=== PATIENT | female | born 1970 | race Two or more races ===

== ENCOUNTER 2019-08-31 16:58 | Day surgery (SDC) | payer BC, OTHER ==
[~2019-08-31] VITALS: Ht 162.6 cm; Wt 75.1 kg
[2019-08-31 18:02] LABS: MICROSCOPIC INDICATED
[2019-08-31 18:21] LABS: CULTURE INDICATED? YES
--- NOTE | 2019-08-31 18:28 | NUR ---
SHEET TURNER: PT AMBULATORY WITH STEADY GAIT TO ROOM AT THIS TIME.
--- NOTE | 2019-08-31 18:44 | NUR ---
FIRST CONTACT WITH PT. PT HERE FOR BILATERAL FLANK PAIN THAT RADIATES DOWN HER THIGHS. PT REPORTS SHE ALSO FEELS LIKE HER STOMACH IS SWOLLEN. PT REPORTS 800MG IBUPROFIN Q2H AND NO PAIN RELIEF. PT RPEORTS PAIN 10/10. HX OF KIDNEY STONES. PT'S AOX4. RESPS EVEN AND UNLABORED. BP/SPO2 MONITORS IN PLACE. CALL LIGHT WITHIN REACH. EDMD AT BEDSIDE TO EVALUATE AT THIS TIME. COMORAN SPEAKING.
--- NOTE | 2019-08-31 18:51 | NUR ---
PT STATES "I GAVE URINE SAMPLE ALREADY." LAB AT BEDSIDE AT THIS TIME.
[2019-08-31] MEDS ORDERED: ONDANSETRON 2MG/ML, 2ML ONE (18:58)
[2019-08-31] MEDS ORDERED: MORPHINE SULFATE 4 MG/ML, 1ML ONE ×2 (18:59→21:17)
[2019-08-31] MEDS ORDERED: ONDANSETRON 2MG/ML, 2ML IVPush ONE (19:00)
--- NOTE | 2019-08-31 19:03 | NUR ---
REPORT GIVEN TO NEVILLE KIM.
[2019-08-31 19:06] LABS: MEAN CORPUSCULAR HEMOGLOBIN 28.1 pg (27.0-34.8); MEAN CORPUSCULAR HGB CONC 33.1 g/dL (32.4-35.8); MEAN CORPUSCULAR VOLUME 84.8 fL (80-100); PLATELET COUNT 274 x10^3/uL (130-400); RED BLOOD COUNT 4.78 x10^6/uL (3.82-5.3)
[2019-08-31] MEDS: MORPHINE SULFATE 4 MG/ML, 1ML IVPush PRN ×2 (19:08→21:34)
--- NOTE | 2019-08-31 19:13 | NUR ---
Report received from JUDY Herrera. This RN to assume care. Patient c/o abd pain. IV initiated; medicated patient per jun.
[2019-08-31 19:14] LABS: ALANINE AMINOTRANSFERASE 29 U/L (12-78); ALBUMIN 3.5 g/dL (3.4-5.0); ANION GAP 6 mmol/L (5-15); CALCIUM 8.9 mg/dL (8.5-10.1); CHLORIDE 106 mmol/L (98-107); CREATININE 0.69 mg/dL (0.55-1.02)
[2019-08-31 19:18] LABS: ALKALINE PHOSPHATASE 127 U/L (45-117); BILIRUBIN,TOTAL 0.2 mg/dL (0.2-1.0); TOTAL PROTEIN 7.6 g/dL (6.4-8.2)
[2019-08-31 19:25] LABS: BASOPHILS # (AUTO) 0.03 x10^3/uL (0-0.1); BASOPHILS % (AUTO) 0 % (0-1); EOSINOPHILS # (AUTO) 0.53 x10^3/uL (0-0.4); EOSINOPHILS % (AUTO) 7 % (1-7); LYMPHOCYTES % (AUTO) 31 % (22-44); MD MORPH REVIEW ONLY; MONOCYTES # (AUTO) 0.67 x10^3/uL (0.2-0.8); MONOCYTES % (AUTO) 9 % (2-9); NEUTROPHILS # (AUTO) 4.21 x10^3/uL (1.8-6.8); NEUTROPHILS % (AUTO) 54 % (42-75)
[2019-08-31 19:29] LABS: ANISOCYTOSIS 1+; OVALOCYTES 1+
[2019-08-31 19:36] LABS: <PLATELET ESTIMATE> ADEQUATE; <PLT MORPHOLOGY> NORMAL PLT MORPH
[2019-08-31 19:37] LABS: POLYCHROMASIA 1+
[2019-08-31] MEDS ORDERED: OMNIPAQUE 350 MG/ML, 100ML BOTTLE ONE (19:41)
--- NOTE | 2019-08-31 19:48 | NUR ---
Patient states she only has a little pain but is dizzy from the Morphine. Advised patient she will be slightly dizzy but we will monitor her and to let us know if anything changes.
--- NOTE | 2019-08-31 20:39 | NUR ---
commode brought to room
--- NOTE | 2019-08-31 21:19 | NUR ---
TP RN: MEDS PULLED PER JUN FOR JUDY FERNANDEZ, REBECCA IS LOCKED OUT OF [facility] WITH INVALID PASSWORD. HOUSE SUP, STEFAN AWARE.
[2019-08-31] MEDS ORDERED: SODIUM CHLORIDE 0.9% 1,000 ML IV ONE (21:22)
[2019-08-31] MEDS ORDERED: HYDROmorphone 1 MG/ML, 1ML INJ IVPush PRN (21:30)
[2019-08-31] MEDS ORDERED: CEFTRIAXONE PMX 1GM/50ML 50 ML IV ONE (21:30)
[2019-08-31] MEDS ORDERED: ONDANSETRON 2MG/ML, 2ML IVPush PRN (21:30)
[2019-08-31] MEDS ORDERED: CEFTRIAXONE PMX 1GM/50ML 50 ML ONE (21:36)
[2019-08-31 22:56] VITALS: BP 119/81
[2019-08-31] MEDS: HYDROmorphone 1 MG/ML, 1ML INJ IV PRN ×2 (23:21→23:52)
[2019-08-31] MEDS ORDERED: ASCO500C2 PO (23:24)
[2019-08-31] MEDS ORDERED: CHOL500L3 PO (23:24)
[2019-08-31] MEDS ORDERED: PREN-1 PO (23:24)
[2019-08-31] MEDS ORDERED: ASCO1CAP2 PO (23:24)
[2019-08-31] MEDS ORDERED: RANI-460 PO (23:26)
[2019-09-01] MEDS ORDERED: HYDROmorphone 1 MG/ML, 1ML INJ IM PRN
[2019-09-01] MEDS: ONDANSETRON 2MG/ML, 2ML IVPush PRN ×2 (01:20→10:02)
[2019-09-01 01:46] VITALS: BP 107/68
[2019-09-01] MEDS ORDERED: CHLORHEXIDINE 15 ML UDC ONE (02:45)
[2019-09-01] MEDS ORDERED: BUPIVACAINE/PF-EPI 0.5% 1:200K ONE (02:46)
[2019-09-01] MEDS: HYDROmorphone 1 MG/ML, 1ML INJ IV PRN (05:00)
[2019-09-01] MEDS ORDERED: PROMETHAZINE 25 MG/ML, 1ML IVPush PRN (06:00)
[2019-09-01] MEDS ORDERED: HALOPERIDOL 5 MG/ML IV PRN (06:00)
[2019-09-01] MEDS ORDERED: HYDROmorphone 1 MG/ML, 1ML INJ IVPush PRN (06:00)
[2019-09-01] MEDS ORDERED: morphine SULFATE 10 MG/ML, 1ML IVPush PRN (06:00)
[2019-09-01] MEDS ORDERED: MEPERIDINE/PF 25MG/0.5ML IVPush PRN (06:00)
[2019-09-01] MEDS ORDERED: LABETALOL 5MG/ML, 20ML IV PRN (06:00)
[2019-09-01] MEDS ORDERED: OXYcodone 5 MG/5 ML ORAL.SOL UDC PO PRN (06:00)
[2019-09-01] MEDS ORDERED: hydrALAzine 20 MG/ML, 1ML IV PRN (06:00)
[2019-09-01] MEDS ORDERED: FENTANYL PF 100 MCG/2ML IV PRN (06:00)
[2019-09-01] MEDS ORDERED: ACETAMINOPHEN 325 MG TABLET PO PRN (06:00)
[2019-09-01] MEDS ORDERED: KETOROLAC 30 MG/1 ML ONE (06:04)
[2019-09-01] MEDS ORDERED: NEOSTIGMINE 1 MG/ML, 10ML ONE (06:04)
[2019-09-01] MEDS ORDERED: GLYCOPYRROLATE 0.2MG/1ML, 5ML ONE (06:04)
[2019-09-01] MEDS ORDERED: CEFOTETAN PMX 2GM/50ML 50 ML IVPB ONE (06:04)
[2019-09-01] MEDS ORDERED: ROCURONIUM 10 MG/ML,10ML ONE (06:04)
[2019-09-01] MEDS ORDERED: SUCCINYLCHOLINE 20 MG/ML, 10ML ONE (06:04)
[2019-09-01] MEDS ORDERED: DEXAMETHASONE 4 MG/ML, 1ML ONE (06:04)
[2019-09-01] MEDS ORDERED: ONDANSETRON 2MG/ML, 2ML ONE (06:04)
[2019-09-01] MEDS ORDERED: PROPOFOL 10 MG/ML, 20ML ONE (06:04)
[2019-09-01] MEDS ORDERED: BUPIVACAINE/PF-EPI 0.5% 1:200K INFIL ONE (06:36)
[2019-09-01 07:55] VITALS: BP 99/66
[2019-09-01] MEDS ORDERED: KETOROLAC 30 MG/1 ML IV PRN (08:30)
[2019-09-01] MEDS ORDERED: HYDROcodone/APAP 5/325 TABLET PO PRN (08:30)
[2019-09-01] MEDS ORDERED: MORPHINE SULFATE 4 MG/ML, 1ML IVPush PRN (09:00)
[2019-09-01] MEDS ORDERED: HYDR-3240 PO (09:56)
== END 2019-09-01 12:28 | disposition home or self-care (01) ==
LOC: OR 21:32 → UNDOADMIN 21:38 → OR 21:38 → EDIP 21:38 → 4NE 22:53 → EDIP 22:53 → EDSTATUS 09-01 06:30 → OR 09-01 12:28 → UNDODISIN 09-01 12:28
PROVIDERS: ATTEND Student in an Organized Health Care Education/Training Program
DX: K35.80 Unspecified acute appendicitis (principal); K21.9 Gastro-esophageal reflux disease without esophagitis; Z79.899 Other long term (current) drug therapy; Z90.49 Acquired absence of other specified parts of digestive tract
CPT/HCPCS: 36415; 44970; 74177; 80053; 81001; 83605; 83690; 84703; 85025; 87086; 88304; 99285; C1729; J0330; J0696; J1100; J1170; J1885; J2270; J2405; J2704; J2710; J3490; J7030; Q9967; G0378

== ENCOUNTER 2019-09-03 17:53 | Emergency (ER) | payer OTHER ==
[~2019-09-03] VITALS: Ht 160 cm; Wt 74.9 kg
[~2019-09-03 17:53] MED LIST: ASCO1CAP2 PO; ASCO500C2 PO; CHOL500L3 PO; HYDR-3240 PO; PREN-1 PO; RANI-460 PO
--- NOTE | 2019-09-03 18:23 | NUR ---
ua collected from patient in lobby-sent for analysis
[2019-09-03 18:46] LABS: MICROSCOPIC NOT IND
[2019-09-03 18:59] LABS: CULTURE INDICATED? NO
[2019-09-03] MEDS ORDERED: ONDANSETRON 2MG/ML, 2ML IVPush ONE ×2 (19:30→21:00)
[2019-09-03] MEDS ORDERED: SODIUM CHLORIDE 0.9% 1,000ML IVBOLUS ONE (19:30)
[2019-09-03] MEDS ORDERED: SODIUM CHLORIDE FLUSH 10ML SYR IVF ONE (19:30)
[2019-09-03] MEDS ORDERED: ONDANSETRON 2MG/ML, 2ML ONE (19:31)
--- NOTE | 2019-09-03 19:39 | NUR ---
PIV PLACED. MEDS ADMIN PER JUN. IVF RUNNING. PT RESTING COMFORTABLY ON [facility]. FABIOLA.
--- NOTE | 2019-09-03 20:10 | NUR ---
IVF COMPLETE. CHART UP FOR RECHECK.
[2019-09-03] MEDS ORDERED: MORPHINE SULFATE 4 MG/ML, 1ML IVPush PRN (21:00)
[2019-09-03] MEDS ORDERED: MORPHINE SULFATE 4 MG/ML, 1ML ONE (21:11)
--- NOTE | 2019-09-03 21:15 | NUR ---
PAIN MEDS ADMIN PER JUN.
[2019-09-03 21:17] VITALS: BP 113/70
== END 2019-09-03 21:57 | disposition home or self-care (01) ==
LOC: ED 21:02
DX: R10.84 Generalized abdominal pain (principal); R51 Headache; M54.5 Low back pain; R11.0 Nausea; Z90.49 Acquired absence of other specified parts of digestive tract; Z90.710 Acquired absence of both cervix and uterus
CPT/HCPCS: 81003; 96374; 96375; 99284; J2270; J2405; J7030

== ENCOUNTER → 2019-12-29 | Outpatient (CLI) | payer OTHER ==
[~2019-12-29] MED LIST changes: +None at this Time
[2019-12-29 11:26] LABS: BASOPHILS # (AUTO) 0.04 x10^3/uL (0-0.1); BASOPHILS % (AUTO) 1 % (0-1); EOSINOPHILS # (AUTO) 0.41 x10^3/uL (0-0.4); EOSINOPHILS % (AUTO) 6 % (1-7); LYMPHOCYTES # (AUTO) 1.96 x10^3/uL (1-3.4); LYMPHOCYTES % (AUTO) 30 % (22-44); MD NO; MEAN CORPUSCULAR HEMOGLOBIN 29.7 pg (27.0-34.8); MEAN CORPUSCULAR HGB CONC 33.4 g/dL (32.4-35.8); MEAN CORPUSCULAR VOLUME 88.9 fL (80-100); MEAN PLATELET VOLUME 8.8 fL (7.4-10.4); MONOCYTES # (AUTO) 0.56 x10^3/uL (0.2-0.8); MONOCYTES % (AUTO) 9 % (2-9); NEUTROPHILS # (AUTO) 3.62 x10^3/uL (1.8-6.8); NEUTROPHILS % (AUTO) 55 % (42-75); PLATELET COUNT 270 x10^3/uL (130-400); RED BLOOD COUNT 4.64 x10^6/uL (3.82-5.3); RED CELL DISTRIBUTION WIDTH 12.4 % (9.6-15.2)
[2019-12-29 12:01] LABS: MICROSCOPIC AUTO
== END | disposition home or self-care (01) ==
LOC: STAR 10:15
PROVIDERS: ATTEND Obstetrics & Gynecology
DX: Z01.818 Encounter for other preprocedural examination (principal); D25.9 Leiomyoma of uterus, unspecified; N93.9 Abnormal uterine and vaginal bleeding, unspecified
CPT/HCPCS: 36415; 81001; 85025; 93005

== ENCOUNTER → 2020-01-01 | Outpatient (CLI) | payer OTHER ==
[~2020-01-01] MED LIST changes: +IBUP-1222 PO; +OXYC-302 PO
== END | disposition home or self-care (01) ==
LOC: STAR 14:27
PROVIDERS: ATTEND Anesthesiology
DX: Z01.812 Encounter for preprocedural laboratory examination (principal); Z20.828 Contact with and (suspected) exposure to other viral communicable diseases
CPT/HCPCS: 36415; 87635

== ENCOUNTER 2020-01-05 10:30 | Observation (INO) | payer OTHER ==
[~2020-01-05] VITALS: Ht 167.6 cm; Wt 77.1 kg
[~2020-01-05 10:30] MED LIST changes: -IBUP-1222 PO; -OXYC-302 PO
[2020-01-05] MEDS ORDERED: CHLORHEXIDINE 15 ML UDC MM STA (10:57)
[2020-01-05] MEDS ORDERED: LACTATED RINGERS 1,000 ML IV SCH (10:57)
[2020-01-05] MEDS ORDERED: CHLORHEXIDINE 15 ML UDC ONE (11:03)
[2020-01-05] MEDS ORDERED: DEXAMETHASONE 4 MG/ML, 1ML ONE (12:11)
[2020-01-05] MEDS ORDERED: ROCURONIUM 10MG/ML,5ML ONE (12:11)
[2020-01-05] MEDS ORDERED: GLYCOPYRROLATE 0.2MG/1ML, 5ML ONE (12:11)
[2020-01-05] MEDS ORDERED: MIDAZOLAM 1 MG/ML, 2ML ONE (12:11)
[2020-01-05] MEDS ORDERED: FENTANYL PF 100 MCG/2ML ONE ×2 (12:11→15:03)
[2020-01-05] MEDS ORDERED: PROPOFOL 10 MG/ML, 20ML ONE (12:11)
[2020-01-05] MEDS ORDERED: NEOSTIGMINE 1 MG/ML, 10ML ONE (12:11)
[2020-01-05] MEDS ORDERED: ONDANSETRON 2MG/ML, 2ML ONE (12:11)
[2020-01-05] MEDS ORDERED: SUCCINYLCHOLINE 20 MG/ML, 10ML ONE (12:11)
[2020-01-05] MEDS ORDERED: CEFAZOLIN 1,000 MG ONE (12:11)
[2020-01-05] MEDS ORDERED: OXYcodone 5 MG/5 ML ORAL.SOL UDC PO PRN (12:30)
[2020-01-05] MEDS ORDERED: HYDROmorphone 1 MG/ML, 1ML INJ IVPush PRN (12:30)
[2020-01-05] MEDS ORDERED: BUPIVACAINE/PF 0.25% ONE (12:30)
[2020-01-05] MEDS ORDERED: MEPERIDINE/PF 25MG/0.5ML IVPush PRN (12:30)
[2020-01-05] MEDS ORDERED: FLUORESCEIN SODIUM 500 MG/5 ML ONE (12:30)
[2020-01-05] MEDS ORDERED: EPINEPHRINE 1 MG/ML, 1ML ONE (12:30)
[2020-01-05] MEDS ORDERED: PROMETHAZINE 25 MG/ML, 1ML IVPush PRN (12:30)
[2020-01-05] MEDS ORDERED: HYDROcodone/APAP 7.5-325MG/15ML UDC PO PRN (12:30)
[2020-01-05] MEDS ORDERED: VASOPRESSIN 20 UNIT/ML, 1ML ONE (12:40)
[2020-01-05] MEDS ORDERED: SUGAMMADEX 200 MG/2 ML IVPush ONE (12:47)
[2020-01-05] MEDS: FENTANYL PF 100 MCG/2ML IV PRN ×2 (15:08→15:30)
[2020-01-05] MEDS ORDERED: OXYcodone 5 MG/5 ML ORAL.SOL UDC ONE ×2 (15:30→15:36)
[2020-01-05] MEDS ORDERED: KETOROLAC 30 MG/1 ML IVPush PRN ×2 (15:30→19:00)
[2020-01-05] MEDS ORDERED: ONDANSETRON 2MG/ML, 2ML IVPush PRN (15:30)
[2020-01-05] MEDS ORDERED: ACETAMINOPHEN 650 MG/20.3 ML UDC ONE (15:30)
[2020-01-05] MEDS: ACETAMINOPHEN 325 MG TABLET PO PRN ×2 (15:35→19:38)
[2020-01-05] MEDS: OXYcodone 5 MG/5 ML ORAL.SOL UDC PO PRN ×2 (15:35→19:37)
[2020-01-05] MEDS ORDERED: HYDROmorphone 1 MG/ML, 1ML INJ ONE (15:43)
[2020-01-05] MEDS: D5%-0.45% NACL 1,000 ML IV SCH (16:17)
[2020-01-05] MEDS: HYDROmorphone 2 MG/ML, 1ML IVPush PRN ×2 (18:56→21:08)
[2020-01-05] MEDS ORDERED: HYDROmorphone 2 MG/ML, 1ML IVPush PRN (19:00)
[2020-01-05] MEDS ORDERED: SIMETHICONE 80 MG CHEW TAB PO PRN (21:00)
[2020-01-05] MEDS: IBUPROFEN 600 MG TABLET PO SCH (21:00)
[2020-01-06] MEDS: D5%-0.45% NACL 1,000 ML IV SCH ×3 (00:17→08:30)
[2020-01-06] MEDS: ACETAMINOPHEN 325 MG TABLET PO PRN ×3 (00:21→14:50)
[2020-01-06] MEDS: OXYcodone 5 MG/5 ML ORAL.SOL UDC PO PRN ×4 (00:22→14:51)
[2020-01-06] MEDS: DOCUSATE 100 MG CAPSULE PO SCH ×2 (00:22→08:25)
[2020-01-06 01:44] VITALS: BP 103/71
[2020-01-06] MEDS: IBUPROFEN 600 MG TABLET PO SCH ×2 (05:24→11:32)
[2020-01-06 07:25] VITALS: BP 89/57
[2020-01-06 13:16] VITALS: BP 92/52
[2020-01-06 16:20] VITALS: BP 110/67
[2020-01-06] MEDS ORDERED: IBUP-1222 PO (16:40)
[2020-01-06] MEDS ORDERED: OXYC-302 PO (16:44)
[2020-01-11] MEDS ORDERED: IBUPROFEN 600 MG TABLET PO SCH (06:00)
== END 2020-01-06 17:19 | disposition home or self-care (01) ==
LOC: OUT 10:30 → 4NE 19:10 → OUT 22:35 → 4NE 22:35 → DCLOUNGE 01-06 16:45
PROVIDERS: ADMIT Obstetrics & Gynecology; ATTEND Obstetrics & Gynecology
DX: N93.9 Abnormal uterine and vaginal bleeding, unspecified (principal); N85.2 Hypertrophy of uterus; Z87.42 Personal history of other diseases of the female genital tract
CPT/HCPCS: 52000; 58571; 81025; 88307; 96374; G0378; J0171; J0330; J0690; J1100; J1170; J1885; J2250; J2405; J2704; J2710; J3010; J3490; J7120